=== PATIENT | male | born 1960 | race Caucasian/White ===

== ENCOUNTER 2024-11-26 09:39 | Day surgery (SDC) | payer MEDICARE, SELFPAY ==
--- NOTE | 2024-11-24 10:07 | SUR.PREOP ---
11/24/24 1007- voicemail left to preop pt for procedure. will call back on 11/25/24
[2024-11-24 12:00] VITALS: BMI 28.7
[2024-11-26 10:01] VITALS: BP 122/76; PULSE 55; RESP 18; TEMP 36.1; O2SAT 97
[2024-11-26] MEDS: LACTATED RINGERS 1000ML 1,000 ML 50 ML IV (10:19)
--- NOTE | 2024-11-26 10:29 | P.PNANES_ITS ---
[facility] Disclaimer: The information contained in this section may have been updated after the patient was seen, as this information can be updated by other users. Medical History (Updated 11/26/24 @ 10:14 by Lesia Thao RN) Diabetes Anxiety Shingles Hyperlipemia HTN (hypertension) Diverticulitis Surgical History H/O hemorrhoidectomy Hx of abdominal surgery H/O shoulder surgery Family History Other Breast cancer Cancer Colon cancer Heart attack Social History (Updated 11/26/24 @ 10:13 by Lesia Thao RN) Smoking Status: Current every day smoker alcohol intake: current substance use type: denies use current occupational status: employed Travel in the last 8 weeks: Inside the [place] caffeine: Yes [facility] Anesthesia Checklist Patient Identification Patient Identification: Arm Band and Family Structural Data Admitted From: Home Planned Operative Procedure/s: Colonscopy Consent for Planned Operative Procedure(s) Verified: Yes Verified Documents: Surgical Consent and History and Physical NPO Status Verified Time NPO: 00:00 Additional verifications Patient : No Anesthesia Reactions: No Hx Blood Transfusions: No Blood Transfusion Reaction: No Cephalosporin Allergy: No Previous Colonoscopy: Yes Airway Assessment Mallampati Score:: Class II C-Spine Mobility Assessed: Yes TMJ Mobility Assessed: Yes Dentition: Good Dentition Neurological Assessment Level of Consciousness: Awake, Alert, Appropriate and Follows Commands Hx Seizures: No Numbness or tingling in extremities: No Anesthesia Plan Anesthesia Risk discussed: Yes ASA Class: II Anesthesia Type: MAC Preoperative Comments Pre-Operative Comments: History of diverticulitis.
[2024-11-26 11:32] VITALS: O2SAT 99
--- NOTE | 2024-11-26 11:45 | P.HP_ITS ---
History of Present Illness *Admission Date: 11/26/24 *Reason for visit:: Personal history of adenomatous polyps/family history of colon cancer *History of present illness: Mr. Perez is a 64-year-old gentleman who is here for surveillance colonoscopy. His brother had colon cancer at the age of 54. His last colonoscopy 5 years ago revealed 2 benign polyps (adenomas). The examination is deemed medically necessary for surveillance colonoscopy. The patient has been seen, interviewed and examined prior to the procedure by both myself and the anesthesia provider. [facility] Disclaimer: The information contained in this section may have been updated after the patient was seen, as this information can be updated by other users. Medical History (Updated 11/26/24 @ 11:46 by Jorge Silva II, MD) Diabetes Anxiety Shingles Hyperlipemia HTN (hypertension) Diverticulitis Surgical History H/O hemorrhoidectomy Hx of abdominal surgery H/O shoulder surgery Family History Other Breast cancer Cancer Colon cancer Heart attack Social History (Updated 11/26/24 @ 10:31 by Dedrick Nielson CRNA) Smoking Status: Current every day smoker alcohol intake: current substance use type: denies use current occupational status: employed Travel in the last 8 weeks: Inside the [place] caffeine: Yes Have you lived/traveled outside [place] in past 30 days?: No Contact w/someone who lives/traveled outside US past 30 days?: No Exposure to someone with infectious disease in past 14 days?: No Do you have a fever (greater than 100.4 F or 38 C)?: No Have you tested positive for COVID-19: No Exposed to someone with COVID-19 in past 14 days?: No Do you have a sore throat?: No Do you have a cough?: No Do you have any weakness?: No Are you experiencing any nausea/vomitting?: No Do you have any diarrhea?: No Are you experiencing any unusual bleeding?: No Do you have any muscle aches/pain?: No Do you have any abdominal pain?: No Are you experiencing loss of taste or smell?: No Review of Systems Review of Systems Review of systems (narrative): Negative *Cardiovascular Comments: Negative *Gastrointestinal Comments: Negative *Genitourinary Comments: Negative *Musculoskeletal Comments: Negative *Neurologic Comments: Negative Meds Home Medications and Allergies Home Medications ?Medication ?Instructions ?Recorded ?Confirmed ?Type sodium,potassium,mag sulfates 17.5 See Rx Instructions PO .COMPLEX 11/23/24 Rx gram-3.13 gram-1.6 gram oral soln #354 mL (Suprep Bowel Prep Kit) allopurinol 300 mg tablet 300 mg PO DAILY 11/24/24 11/26/24 History amlodipine 5 mg tablet 5 mg PO DAILY 11/24/24 11/26/24 History lisinopril 20 mg tablet 20 mg PO DAILY 11/24/24 11/26/24 History metformin 500 mg tablet 500 mg PO BID 11/24/24 11/26/24 History methylphenidate HCl 10 mg tablet 10 mg PO DAILY 11/24/24 11/26/24 History simvastatin 80 mg tablet 80 mg PO DAILY 11/24/24 11/26/24 History New Prescriptions to Start Prescriptions: Allergies Allergy/AdvReac Type Severity Reaction Status Date / Time No Known Allergies Allergy Verified 11/26/24 10:00 Exam Data for Last 24 hours Vital signs and Labs for Last 24 Hours: Temp Pulse Resp BP Pulse Ox O2 Del Method O2 Flow Rate 97.0 F L 55 L 18 122/76 97 Nasal Cannula 5 11/26/24 10:01 11/26/24 10:01 11/26/24 10:01 11/26/24 10:01 11/26/24 10:01 11/26/24 11:32 11/26/24 11:32 I & O for Last 24 hours: Intake & Output 11/23/24 11/24/24 11/25/24 11/26/24 23:59 23:59 23:59 23:59 Weight 200 lb *Routine HEENT Exam Head: Present normocephalic Eye: Present EOMI and PERRL ENT: Present mucous membranes moist *Routine Neck Exam Neck: Present supple *Routine Respiratory Exam Respiratory: Present CTA bilaterally *Routine Cardiovascular Exam Cardiovascular: Present RRR *Routine Abdominal Exam Abdominal: Present soft and normoactive bowel sounds; Absent tenderness *Routine Rectal Exam Rectal:: deferred *Routine Genitalia Exam Genitalia:: deferred *Routine Extremities Exam Extremities: Absent cyanosis, clubbing or edema *Routine Skin Exam Skin: Present warm; Absent rash *Routine Neurological Exam Neurological: Present alert and oriented X3 Assessment and Plan *Assessment and plan (1) Personal history of adenomatous and serrated colon polyps: Status: Acute Category: Medical Code(s): Z86.0101 - Personal history of adenomatous and serrated colon polyps (2) Family history of colon cancer: Status: Acute Category: Medical Code(s): Z80.0 - Family history of malignant neoplasm of digestive organs Plan A/P: 1. Personal history of adenomatous colon polyps and family history of colon cancer is the preprocedural diagnosis. The patient will be anesthetized/sedated using MAC sedation. The patient has been seen and examined. Cardiac and lung assessment prior to the examination is stable. Proceed with planned surveillance colonoscopy
--- NOTE | 2024-11-26 11:46 | P.PCN_ITS ---
[facility] Procedure Note Date: 11/26/24 Time: 12:04 Procedure Note:: Colonoscopy Procedure Report: Colonoscopy with cold snare polypectomy Endoscopist: Jorge Silva II, MD Referring physician: Elkin Wang MD, [address] [place], [place] [address], [place] [address] Date of Procedure: November 26, 2024 Equipment: Olympus 190 variable stiffness pediatric colonoscope Sedation: MAC sedation Indication: Mr. Perez is a 64-year-old gentleman who is here for follow-up surveillance colonoscopy. His last colonoscopy 5 years ago revealed 2 benign polyps (adenomas x 2) which were removed. The patient's brother had colon cancer at the age of 54. He reports no abdominal pain, weight loss, change in his bowel habits or rectal bleeding. The patient did have a history of complicated sigmoid diverticulitis and had sigmoid colectomy previously. Procedure: Prior to the procedure, a history and physical exam was performed, and patient's medications and allergies were reviewed. The risks, benefits and alternatives of the sedation and procedure were discussed with the patient. All questions were answered and informed consent was obtained. The patient was brought to the procedure room. Patient identification and proposed procedure were verified by the physician and the nurse. The patient was placed in a left lateral decubitus position and the scope was passed under direct vision. Throughout the procedure, the patient's blood pressure, pulse, and oxygen saturations were monitored continuously. The colonoscopy was accomplished without difficulty. The patient tolerated the procedure well. Findings: On digital rectal examination there was normal rectal tone. There were no external hemorrhoids. The prostate was 2-3+, mildly enlarged but soft and symmetric without nodules. The colonoscope was introduced through the anal canal to the rectum and advanced to the cecum. The ileocecal valve and appendiceal orifice were identified. The scope was advanced a short distance into the ileum which appeared grossly normal. The scope was then withdrawn into the colon. The cecum, ascending, transverse colon were normal. There was a diminutive polyp (3 to 4 mm) in the descending colon removed via cold snare polypectomy. There were some scattered diverticuli in the remaining descending and proximal sigmoid. The anastomotic site was well-healed. The rectum was normal and upon retroflexion there were grade 2 internal hemorrhoids. The preparation was excellent throughout with Acton Preparation Score of 9. The cecal time was 12 minutes. Impression: 1. Diminutive descending polyp (3 to 4 mm) 2. Prior LAR/sigmoid colectomy with normal anastomosis and some remaining left- sided diverticulosis 3. Grade 2 internal hemorrhoids Plan: I will follow-up the polyp histology. Based upon the patient's family history and history of adenomatous polyps, I would recommend repeat surveillance c olonoscopy again in 5 years. I would continue psyllium fiber supplementation on a maintenance basis.
[2024-11-26 12:09] VITALS: BP 111/71; PULSE 55; RESP 15; TEMP 36.1; O2SAT 97
[2024-11-26 12:19] VITALS: BP 120/75; PULSE 50; RESP 16; O2SAT 97
[2024-11-26 12:29] VITALS: BP 126/74; PULSE 48; RESP 18; O2SAT 97
[2024-11-26 12:39] VITALS: BP 127/89; PULSE 50; RESP 15; TEMP 36.8; O2SAT 98
[2024-11-27 18:44] LABS: POC Glucose,Bedside 107 (70-110)
== END 2024-11-26 12:39 | disposition home or self-care (01) ==
PROVIDERS: PCP Family Medicine; Visit Provider Internal Medicine Gastroenterology
PROC: (CPT 45385; principal; 2024-11-26 10:00)
DX: K63.5 Polyp of colon (principal); K57.30 Diverticulosis of large intestine without perforation or abscess without bleeding; K64.8 Other hemorrhoids; Z86.0101 Personal history of adenomatous and serrated colon polyps; Z80.0 Family history of malignant neoplasm of digestive organs; E11.9 Type 2 diabetes mellitus without complications; Z79.84 Long term (current) use of oral hypoglycemic drugs
CPT/HCPCS: 45385; 82962; 88305; J7120